=== PATIENT | male | born 1985 | race Caucasian/White ===

== ENCOUNTER → 2016-10-12 | Outpatient (CLI) | payer OTHER ==
[~2016-10-12] MED LIST: IOHEXOL 300 MG/ML 75ml INJECTION ONE; NORMAL SALINE 100 ML ONE; SALINE FLUSH 10ml SYRINGE ONE
--- NOTE | 2016-10-12 11:58 | DI ---
Indication: ITS.REASON: R50.9 FEVER; R59.1 SWELLING PROCEDURE: CT NECK W/CONTRAST: Encounter: Initial Comparison: None Technique: Axial CT images were performed through the neck with intravenous contrast. Coronal and sagittal two-dimensional reformats Automated Exposure Control and Iterative Reconstruction dose reducing techniques were utilized. Contrast: Omnipaque 300 75 mL Findings: The lung apices are grossly clear. Thyroid gland is normal. There is inflammation and enlargement of the right palatine tonsil. No evidence of significant airway compromise however. There are bilateral enlarged cervical lymph nodes, right greater than left. A right level two node measures up to 1.8 cm in short axis dimension on coronal image #31. There is some right cervical level three and four lymph nodes present as well, presumably reactive. The parotid and submandibular glands appear normal. No mucosal based masses. No rim-enhancing fluid collection or abscess appreciated. Bone windows are within normal limits. Impression: Tonsillitis with reactive adenopathy. No abscess identified. .
== END ==
LOC: IMA 11:06
PROVIDERS: ATTEND Family Medicine
DX: J03.90 Acute tonsillitis, unspecified (principal); R59.0 Localized enlarged lymph nodes; R50.9 Fever, unspecified
CPT/HCPCS: 70491; J7050; Q9967